=== PATIENT | male | born 1960 | race Two or more races ===

== ENCOUNTER 2018-02-02 05:03 | Emergency (ER) | payer SELFPAY ==
[~2018-02-02] VITALS: Ht 177.8 cm; Wt 91.0 kg
[2018-02-02] MEDS ORDERED: TETANUS, DIPHTHERIA, PERTUSSIS VAC/PF 0.5ML (>7YR OLD) IM ONE (06:30)
[2018-02-02] MEDS ORDERED: MORPHINE SULFATE 4 MG/ML CPJ (NOT FOR IM USE) IV STA (06:30)
[2018-02-02] MEDS ORDERED: ONDANSETRON HCL 4MG/2ML INJ IV STA ×2 (06:30→08:02)
[2018-02-02 06:53] LABS: BASOPHILS % 0.8 % (0.0-2.0); EOSINOPHILS % 0.9 % (0.0-5.0); HEMATOCRIT. 45.2 % (42.0-52.0); HEMOGLOBIN. 15.7 g/dL (14.0-18.0); LYMPHOCYTES % 16.1 % (20.0-50.0); MEAN CORPUSCULAR HEMOGLOBIN 31.5 pg (28.0-32.0); MEAN CORPUSCULAR VOLUME 90.7 fL (80.0-94.0); MEAN PLATELET VOLUME 10.9 fl (7.4-10.4); MONOCYTES % 5.4 % (2.0-8.0); NEUTROPHILS % 76.8 % (40.0-76.0); PLATELET 209 x1000/uL (130-400); RED BLOOD CELL COUNT 4.98 mill/uL (4.7-6.1); RED CELL DISTRIBUTION WIDTH 13.6 % (11.6-14.6)
[2018-02-02] MEDS ORDERED: ONDANSETRON 4MG ODT PO STA (08:02)
[2018-02-02] MEDS ORDERED: SODIUM CHLORIDE 0.9% 1,000 ML IV ONE (08:02)
[2018-02-02] MEDS ORDERED: MORPHINE SULFATE 4 MG/ML CPJ (NOT FOR IM USE) IV ONE (08:30)
[2018-02-02 09:40] LABS: CHLORIDE 106 mEq/L (98-107)
[2018-02-02] MEDS ORDERED: IOHEXOL-350 100 ML BOTTLE ONE (11:29)
[2018-02-02 12:34] VITALS: BP 138/85
== END 2018-02-02 13:11 | disposition short-term general hospital (02) ==
LOC: ER 05:03
DX: S82.251A Displaced comminuted fracture of shaft of right tibia, initial encounter for closed fracture (principal); S92.002A Unspecified fracture of left calcaneus, initial encounter for closed fracture; S80.811A Abrasion, right lower leg, initial encounter; R07.89 Other chest pain; I10 Essential (primary) hypertension; V47.5XXA Car driver injured in collision with fixed or stationary object in traffic accident, initial encounter; Y93.89 Activity, other specified; Y92.488 Other paved roadways as the place of occurrence of the external cause
CPT/HCPCS: 29505; 36415; 70450; 71045; 72191; 73560; 73590; 73610; 73630; 73700; 73706; 80053; 85025; 90471; 90715; 93005; 96374; 96375; 96376; 99285; J2270; J2405; J7030; Q9967; Z7610